=== PATIENT | male | born 1950 | race Caucasian/White ===

== ENCOUNTER 2016-04-16 17:41 | Emergency (ER) | payer OTHER ==
[~2016-04-16] VITALS: Ht 172.7 cm; Wt 97.7 kg
[~2016-04-16 17:41] MED LIST: ALLERCLEAR; ASPI-973 PO; ATOR20TA PO; BACI1CAP6 PO; CARV12.52 PO; CHOL200047 PO; DILT240C89 PO; KRIL1CAP23 PO; LEVO75TA4 PO; LOPE2CAP PO; MULT-1018 PO; OMEP20CA11 PO; SILD100T PO; TAMS0.4C29 PO; TEST200V IM; TRAM50TA2 PO; biotin
[2016-04-16 17:43] VITALS: BP 151/94; PULSE 55; RESP 20; O2SAT 97
--- NOTE | 2016-04-16 19:00 | DRSVH ---
PROCEDURE: X-RAY CHEST ONE VIEW, PORTABLE ([id number]) INDICATIONS: nausea, dizziness, bradycardia TECHNIQUE: One view of the chest was acquired. COMPARISON: None. FINDINGS: Surgical changes and devices: The awake overnight monitor leads are seen over the chest. Lungs and pleura: No pleural effusions or pneumothorax. Lungs are clear. Mediastinum: Mediastinal contours appear normal. Heart size is normal. Bones and chest wall: No suspicious bony lesions. Overlying soft tissues appear unremarkable. IMPRESSION: No acute disease is seen in the upright portable chest. Dictated by: Meek Harper M.D. on 04/16/2016 at 18:58 Approved by: Meek Harper M.D. on 04/16/2016 at 18:58
--- NOTE | 2016-04-16 19:17 | ED.REPORT ---
HPI-General Illness Date of Service Apr 16, 2016 ED Provider: Juan Wilhelm MD A 66 year old male with a history of hypertension presents to the ED complaining of dizziness that began at 1100 this morning. Patient feels "unsteady" during the episodes and symptoms have been constant since onset. Associated symptoms include lightheadedness and nausea. The dizziness is exacerbated when the patient moves his head and when he stands. His symptoms are relieved when he is lying down. He denies any similar previous episodes of dizziness. Patient denies a "spinning" sensation, SOB, chest pain, diaphoresis, headache, ringing or pressure in ear, hematochezia, melena or changes in vision. He denies any family history of cardiac disease and patent denies smoking. Nursing Notes Stated Complaint: DIZZINESS Chief Complaint: General Complaint Nursing Notes Reviewed: Yes Allergies: Coded Allergies: clindamycin (Verified Allergy, Intermediate, RASH, 04/16/16) amoxicillin (Verified Allergy, Unknown, 04/16/16) atenolol (Verified Allergy, Unknown, 04/16/16) Scheduled ([allerclear]) 10 mg tabs 20 MG DAILY ([biotin]) 2500 mcg tabs 5,000 MCG DAILY Aspirin (Aspirin) 81 Mg Tablet 81 MG PO DAILY Atorvastatin (Lipitor) 20 Mg Tablet 20 MG PO DAILY Bacillus Coagulans (Probiotic) 10 Billion Cell Capsule.dr 2 EACH PO BID Carvedilol (Carvedilol) 12.5 Mg Tablet 12.5 MG PO BID Carvedilol (Carvedilol) 6.25 Mg Tablet 6.25 MG PO BID Cholecalciferol (Vitamin D3) (Vitamin D3) 2,000 Unit Capsule 2,000 UNIT PO DAILY Diltiazem ER (Diltiazem ER) 240 Mg Cap.er.24h 240 MG PO DAILY Krill/Om-3/Dha/Epa/Phospho/Ast (Megared [place]ushing-3 Krill Oil Sfgl) 1,000-230MG Capsule 1 EACH PO DAILY Levothyroxine (Levothyroxine) 75 Mcg Tablet 75 MCG PO DAILY Multivitamin (Multi Vitamin Daily) 1 Each Tablet 1 EACH PO DAILY Omeprazole (Omeprazole) 20 Mg Capsule. 20 MG PO DAILY Tamsulosin ER (Tamsulosin ER) 0.4 Mg Cap.er.24h 0.4 MG PO DAILY Testosterone Cypionate (Depo-Testosterone) 200 Mg/1 Ml Depoinj 0.25 ML IM [id number] Scheduled PRN Loperamide (Loperamide) 2 Mg Capsule 2 MG PO Q4H PRN PRN For Diarrhea or Loose Stool Sildenafil Citrate (Viagra) 100 Mg Tablet 100 MG PO UD PRN PRN erectile dysfunction Tramadol (Tramadol) 50 Mg Tablet 50-100 MG PO Q8H PRN PRN For Pain General Time Seen by MD: 18:31 Chief Complaint Dizziness Hx Obtained From: Patient Arrived By: Walk-in Sudden in Onset?: Yes Onset Occurred: 5 - 8 hours ago (1100) Symptom Duration: Since onset Associated with: Reports: Dizziness, Nausea, Denies: Abdominal pain, Chest pain, Diaphoresis, Headache, Shortness of breath, Vomiting Pertinent Negative: Pt denies other symptoms Recent Healthcare: No recent hospitalization, Recent doctor visit Past Medical History Past Medical History Notes: PCP: Dr. Kiara Barnett Past Medical History Reports: GERD, Hypertension, Denies: COPD, Congestive heart failure Reports: Thyroid disease Past Surgical History CTS Reports: Appendectomy Reports: Carpal tunnel Family History Denies family history of cardiac disease Smoking History Never Smoker Social History Alcohol Use: "Social" Other Social History: Good social support, Local resident Ambulatory Status Independent Review of Systems Full Review of Systems Constitutional: Reports: Weakness - generalized, Denies: Chills, Fever Eyes: Denies: Blurred bilateral Ears / Nose / Throat: Denies: Ear ringing bilateral, Earache bilateral Respiratory: Denies: Non-productive cough, Shortness of breath Cardiovascular: Denies: Chest pain GI: Denies: Abdominal pain, Diarrhea, Hematochezia, Melena, Nausea, Vomiting Skin: Denies Diaphoresis Neurologic: Reports: Dizziness, Lightheaded, Denies: Change LOC, Vision change Complete sys rev & neg: except as marked. Physical Exam Vital Signs Vital Signs Date Time Temp Pulse Resp B/P Pulse Ox O2 Delivery O2 Flow Rate FiO2 04/16/16 21:40 36.8 52 12 129/70 95 04/16/16 20:23 62 104/45 04/16/16 20:21 57 127/73 04/16/16 17:43 36.1 55 20 151/94 97 Room Air Initial VS: Reviewed Neck: Supple, Non-tender, Full range of motion Extremities: Vascular intact, Neuro intact, No swelling, No tenderness Skin: Warm, Dry, No cyanosis Psychiatric: Mood/affect normal, Behavior normal, Normal thought content General/Constitutional: Awake, Alert Head / Eyes: Atraumatic, Normocephalic, PERRL, No nystagmus, No photophobia, Visual acuity NL Respiratory / Chest: Atraumatic, Breath sounds NL, Breath sounds = bilat Cardiovascular: Heart rate NL, Regular rhythm, Heart sounds NL, No gallop, No murmurs, No rubs Abdomen: Atraumatic, Soft, Non-tender ABDOMEN: Midline hernia Neurologic: Oriented X3, Speech NL, No motor deficits, No sensory deficits NEURO: No facial droop Interpretation & Diagnostics Lab Results Interpretation Result Diagram: 04/16/16192804/16/161928 Test 04/16/16 19:29 White Blood Count 7.4th/mm3 (3.8-10.1) Red Blood Count 4.97mil/mm3 (4.40-5.80) Hemoglobin 16.1g/dL (13.8-17.2) Hematocrit 46.1% (41.0-50.0) Mean Corpuscular Volume 92.8fL (81-100) Mean Corpuscular Hemoglobin 32.4pg (27.0-35.0) Mean Corpuscular Hemoglobin Concent 34.9% (32.0-37.0) Red Cell Distribution Width 14.0% (12.3-15.4) Platelet Count 142bil/L (150-400) Neutrophils (%) (Auto) 62.5% (40-74) Lymphocytes (%) (Auto) 20.4% (14-46) Monocytes (%) (Auto) 13.6% (4-12) Eosinophils (%) (Auto) 2.8% (0-5) Basophils (%) (Auto) 0.3% (0-3) Sodium Level 139mEq/L (134-144) Potassium Level 4.3mEq/L (3.5-5.2) Chloride Level 100mEq/L (97-108) Carbon Dioxide Level 27mmol/L (18-29) Blood Urea Nitrogen 16mg/dL (8-27) Creatinine 1.27mg/dL (0.76-1.27) Estimat Glomerular Filtration Rate 60mL/min (>59) Glucose Level 90mg/dL (60-99) Calcium Level 9.0mg/dL (8.5-10.1) Magnesium Level 2.0mg/dL (1.6-2.6) Total Bilirubin 0.9mg/dL (0.0-1.2) Aspartate Amino Transf (AST/SGOT) 23U/L (0-50) Alanine Aminotransferase (ALT/SGPT) 22U/L (0-44) Alkaline Phosphatase 84U/L (25-160) Troponin T < 0.010ug/L (0.0-0.011) Total Protein 6.6g/dL (6.4-8.4) Albumin 3.7g/dL (3.4-5.0) ECG Interpretation ECG Interpretation: Sinus Rhythm Rate 51 Right bundle branch block Convexity to ST segment in V2 and V3 Without reciprocal changes Time: 18:59 Interpreted by: ED physician X-Ray Chest Interpretation Chest Xray Interpretation: IMPRESSION: No acute disease is seen in the upright portable chest. Dictated by: Meek Harper M.D. on 04/16/2016 at 18:58 Interpretation / Wet Read by: Interpret - Radiologist CT Head Interpretation IMPRESSION: No acute intracranial abnormality. Minimal atrophic changes. Sinuses and mastoids are clear. Dictated by: Meek Harper M.D. on 04/16/2016 at 19:46 Study: Head CT no contrast Interpretation / Wet Read by: Interpret - Radiologist Re-Eval/Medical Decision Time of Eval: 20:35 Patient Status: Condition improved Re-Evaluation/Progress Note: Patient is rechecked. He is informed of his lab results, EKG results, CT results, X-ray results and diagnosis. Patient reports that he felt alright after standing. Concerns about bradycardia are addressed and all of the patient's questions are addressed. He understands and agrees with the treatment plan. Time of Eval: 21:17 Patient Status: Condition improved Re-Evaluation/Progress Note: Patient is rechecked. His dizziness is still present but improved. Patient passes the road test and is clear for discharge. Consultation : Consulted With: Cardiology Call Returned at: 20:02 Education Liaison: Agrees with eval, Agrees with plan Note: Consulted about patient's EKG Counseled Regarding: Diagnosis, Lab results, Need for follow-up, When/why to return to ED Discharge & Departure Primary Impression: Dizzinesses Disposition: Home Discharge Condition All VS Reviewed: Yes Condition: Stable Additional Instructions: Emergency department evaluation tonight includes interview, examination, ECG, labs, CT brain and chest x-ray. Examination is reassuring at this point. We note a heart rate in the low 50s and upper 40s, which may be causing your symptoms of feeling dizzy and/or lightheaded when upright. We advise decreasing carvedilol from 12.5 twice a day to 6.25 mg twice a day. A new prescription is provided. Follow-up with primary care as soon as possible. Continue other previous home medications.. Return to emergency department for severe dizziness, chest pain, shortness of breath, fainting. Referrals: Ericka Craig DO (PCP) Scribe Attestation Portions of this note were transcribed by Shaunna Huntley. I, Dr. Wilhelm personally performed the history, physical exam and medical decision-making; I reviewed and confirmed the accuracy of the information in the transcribed note. Signed by: Shaunna Huntley, 04/16/16, [id number]. copies to: Ericka Craig Donald L MD Apr 16, 2016 19:17 SHAUNNA HUNTLEY Apr 16, 2016 19:22
[2016-04-16 19:36] LABS: BASOPHILS % (AUTO) 0.3 % (0-3); EOSINOPHILS % (AUTO) 2.8 % (0-5); MONOCYTES % (AUTO) 13.6 % (4-12); Mean Corpuscular Hemoglobin 32.4 pg (27.0-35.0); Mean Corpuscular Volume 92.8 fL (81-100); NEUTROPHILS % (AUTO) 62.5 % (40-74); Platelet Count 142 bil/L (150-400)
--- NOTE | 2016-04-16 19:48 | DRSVH ---
PROCEDURE: CT BRAIN WITHOUT CONTRAST ([id number]) INDICATIONS: dizzy/lightheaded TECHNIQUE: Noncontrast 4.5 mm thick angled axial sections acquired from the foramen magnum to the vertex, with c oronal reformats. COMPARISON: None. FINDINGS: Image quality: Excellent. CSF spaces: Basal cisterns are patent. No extra-axial fluid collections. The ventricles are symmet stephanie in size and shape. Brain: No intracranial bleeds or masses. There is cerebral volume loss for age, with resultant vent ricular and sulcal prominence. There are periventricular and deep white matter chronic small vessel ischemic changes. There is intracranial internal carotid artery atherosclerosis. Skull and face: Calvarium and visualized facial bones appear intact, without suspicious lesions. Sinuses: Visualized sinuses and mastoids are clear. IMPRESSION: No acute intracranial abnormality. Minimal atrophic changes. Sinuses and mastoids are diana ar. Dictated by: Meek Harpre M.D. on 04/16/2016 at 19:46 Approved by: Meek Harper M.D. on 04/16/2016 at 19:46
[2016-04-16 20:08] LABS: TROPONIN T < 0.010 ug/L (0.0-0.011)
[2016-04-16 20:21] VITALS: BP 127/73; PULSE 57
[2016-04-16 20:23] VITALS: BP 104/45; PULSE 62
[2016-04-16] MEDS ORDERED: CARV6.252 PO (21:24)
[2016-04-16 21:40] VITALS: BP 129/70; PULSE 52; RESP 12; O2SAT 95
== END 2016-04-16 21:43 | disposition home or self-care (01) ==
LOC: SED 17:41
DX: R42 Dizziness and giddiness (principal); I10 Essential (primary) hypertension; K21.9 Gastro-esophageal reflux disease without esophagitis; Z79.82 Long term (current) use of aspirin; Z88.1 Allergy status to other antibiotic agents; Z88.0 Allergy status to penicillin